=== PATIENT | female | born 1985 | race Caucasian/White ===

== ENCOUNTER → 2021-02-22 | Outpatient (CLI) | payer OTHER ==
[2021-02-23 09:14] LABS: VITAMIN D, 25-HYDROXY 24.1 ng/mL (30.0-100.0)
[2021-02-23 11:14] LABS: RHEUMATOID ARTHRITIS FACTOR <10.0 IU/mL (0.0-13.9)
[2021-02-24 00:17] LABS: CCP ANTIBODIES IGG/IGA 3 units (0-19)
== END ==
LOC: LAB 11:31
PROVIDERS: Nurse Practitioner Family
DX: S96.911A Strain of unspecified muscle and tendon at ankle and foot level, right foot, initial encounter (principal); M25.50 Pain in unspecified joint; M79.10 Myalgia, unspecified site; D89.9 Disorder involving the immune mechanism, unspecified; R76.8 Other specified abnormal immunological findings in serum
CPT/HCPCS: 36415; 73630; 82550; 82728; 83520; 85652; 86140; 86200; 86431